=== PATIENT | male | born 1950 | race Hispanic/Latino ===

== ENCOUNTER 2017-02-26 09:53 | Inpatient (IN) | payer OTHER, MEDICARE ==
[~2017-02-26] VITALS: Ht 167.6 cm; Wt 70.8 kg
[2017-02-26] MEDS ORDERED: METRONIDAZOLE500 MG PO (10:19)
[2017-02-26] MEDS ORDERED: CIPRO500 MG PO (10:19)
[2017-02-26] MEDS ORDERED: PANTOPRAZOLE SO40 MG PO (10:19)
[2017-02-26] MEDS ORDERED: PANTOPRAZOLE 40 MG 10ML VIAL IV STA (10:31)
[2017-02-26] MEDS ORDERED: SODIUM CHLORIDE 0.9% 1000ML 1,000 ML IV STA (10:31)
[2017-02-26 11:04] LABS: BASOPHILS % 0.5 % (0.0-1.0); EOSINOPHILS # (AUTO) 0.1 (0.0-0.4); EOSINOPHILS % 1.3 % (0.0-6.0); HEMATOCRIT 26.5 % (38.2-49.6); HEMOGLOBIN 8.9 g/dL (14.0-18.0); LYMPHOCYTES # (AUTO) 0.9 (1.0-3.2); LYMPHOCYTES % 23.9 % (18.0-39.1); MEAN CORPUSCULAR HEMOGLOBIN 31.3 pg (28-32); MEAN CORPUSCULAR HGB CONC 33.6 g/dL (31-35); MEAN CORPUSCULAR VOLUME 93.3 fL (81-99); MONOCYTES # (AUTO) 0.3 (0.2-0.8); NEUTROPHILS # (AUTO) 2.4 (2.1-6.9); NEUTROPHILS % 64.8 % (38.7-80.0); PLATELET COUNT 168 x10e3/uL (140-360); RED BLOOD COUNT 2.84 x10e6/uL (4.3-5.7)
[2017-02-26 11:13] LABS: INR 0.88; PARTIAL THROMBOPLASTIN TIME 27.2 seconds (23.8-35.5); PROTHROMBIN TIME 12.4 seconds (11.9-14.5)
[2017-02-26 11:21] LABS: ALANINE AMINOTRANSFERASE 26 IU/L (0-55); ALBUMIN 3.4 g/dL (3.5-5.0); ALBUMIN/GLOBULIN RATIO 1.1 (0.8-2.0); ALKALINE PHOSPHATASE 36 IU/L (40-150); BLOOD UREA NITROGEN 10 mg/dL (7-26); BUN/CREATININE RATIO 14 (6-25); CALCIUM 8.5 mg/dL (8.4-10.2); CARBON DIOXIDE 28 mmol/L (22-29); CHLORIDE 125 mmol/L (98-107); EST GLOMERULAR FILTRATION RATE > 60 ML/MIN (60-); GLUCOSE 88 mg/dL (74-118); SODIUM 157 mmol/L (136-145)
[2017-02-26] MEDS: PANTOPRAZOLE INJ 40 MG in SODIUM CHLORIDE 0.9% 50ML 50 ML IV SCH ×3 (12:01→22:18)
[2017-02-26] MEDS ORDERED: PANTOPRAZOLE INJ 80 MG in SODIUM CHLORIDE 0.9% 100 ML IV SCH (12:15)
[2017-02-26] MEDS ORDERED: PANTOPRAZOL IV ONE (13:15)
[2017-02-26] MEDS ORDERED: [UNRECOGNIZED DRUG - OTHER] IV ONE (13:15)
[2017-02-26] MEDS ORDERED: IRON DEXTRAN INJ 25 MG in SODIUM CHLORIDE 0.9% 100 ML 100 ML IV ONE (13:45)
[2017-02-26] MEDS: SODIUM CHLORIDE 0.9% 1000ML 1,000 ML IV SCH ×2 (14:33→20:10)
[2017-02-26] MEDS ORDERED: IRON DEXTRAN INJ 500 MG in SODIUM CHLORIDE 0.9% 500ML 500 ML IV ONE (15:30)
[2017-02-26 16:50] VITALS: BP 100/61
[2017-02-26 16:52] VITALS: BP 113/56
[2017-02-26 18:39] LABS: HEMATOCRIT 24.6 % (38.2-49.6); HEMOGLOBIN 8.4 g/dL (14.0-18.0)
[2017-02-26] MEDS ORDERED: MIDAZOLAM HCL 2 MG/2 ML VIAL ONE (19:08)
[2017-02-26] MEDS ORDERED: FENTANYL CITRATE/PF 100MCG/2 ML INJ ONE (19:08)
[2017-02-26 20:00] VITALS: BP 132/66
[2017-02-26] MEDS ORDERED: SODIUM CHLORIDE 0.9% 50ML 100 ML ONE (21:02)
[2017-02-26] MEDS ORDERED: PANTOPRAZOLE 40 MG 10ML VIAL ONE (21:02)
[2017-02-27] VITALS: BP 106/57
[2017-02-27] MEDS: SODIUM CHLORIDE 0.9% 1000ML 1,000 ML IV SCH (00:40)
[2017-02-27] MEDS: PANTOPRAZOLE INJ 40 MG in SODIUM CHLORIDE 0.9% 50ML 50 ML IV SCH ×2 (03:41→08:00)
[2017-02-27 04:00] VITALS: BP 137/72
[2017-02-27 07:27] LABS: HEMATOCRIT 26.2 % (38.2-49.6); HEMOGLOBIN 8.8 g/dL (14.0-18.0)
[2017-02-27 08:21] VITALS: BP 139/75
[2017-02-27] MEDS ORDERED: SODIUM CHLORIDE 0.45% 1,000 ML IV ONE (08:45)
[2017-02-27] MEDS ORDERED: EPINEPHRINE HCL INJ 1 MG/ML AMP ONE (08:46)
[2017-02-27 09:14] LABS: FERRITIN 76.25 ng/mL (21.81-274.66); THYROID STIMULATING HORMONE 0.363 uIU/mL (0.350-4.940)
--- NOTE | 2017-02-27 09:45 | History and Physical ---
PRIMARY CARE PHYSICIAN: Dr. Holman. CHIEF COMPLAINT: Black stool. HISTORY OF PRESENT ILLNESS: This is a 66-year-old man with no medical history, now developing black stool with epigastric pain that prompted visit to the hospital. He is admitted for further evaluation and management. GI has been consulted. His hemoglobin on admission was 8.9. PAST MEDICAL HISTORY: Chronic anemia. PAST SURGICAL HISTORY: None. ALLERGIES: NO KNOWN DRUG ALLERGIES. FAMILY HISTORY/SOCIAL HISTORY: The patient is . Denies any alcohol or illicits. MEDICATIONS: Per electronic medical records. REVIEW OF SYSTEMS: Denies any dizziness or chest pain. PHYSICAL EXAMINATION VITAL SIGNS: Reviewed. GENERAL APPEARANCE: A tired-appearing man resting in the bed. HEENT: Anicteric. CARDIOVASCULAR: Normal S1 and S2. A loud murmur. ABDOMEN: Soft and nontender. Nondistended. EXTREMITIES: There is no edema. SKIN: Dry. PSYCHIATRIC: Flat affect. LABS: Reviewed. MEDICATIONS: Reviewed. ASSESSMENT AND PLAN: A 66-year-old man. 1. Melena/gastrointestinal bleed. GI consulted. The patient on proton pump inhibitor. 2. Normocytic anemia, moderate. Will get an anemia panel. 3. Hypernatremia. Will rehydrate the patient and reassess. 4. Prophylaxis: Will use SCDs and proton pump inhibitor. DISPOSITION: Follow up sodium level. Follow up anemia panel. Job#: [id number]
[2017-02-27] MEDS: SUCRALFATE 1 GM TAB PO SCH ×3 (11:49→21:18)
[2017-02-27 12:23] VITALS: BP 131/62
[2017-02-27] MEDS: SODIUM CHLORIDE 0.45% 1,000 ML IV SCH (14:04)
[2017-02-27] MEDS: PANTOPRAZOL 40MG/SOD CHL 0.9% 50 ML IV SCH ×2 (14:04→19:41)
[2017-02-27 16:27] VITALS: BP 112/68
[2017-02-27 17:26] LABS: HEMATOCRIT 27.4 % (38.2-49.6); HEMOGLOBIN 9.2 g/dL (14.0-18.0)
[2017-02-27] MEDS ORDERED: ATROPINE SULFATE 1 MG/ML VIAL ONE (18:37)
[2017-02-27] MEDS ORDERED: PROPOFOL IV EMULSION 10 MG/ML 20 ML VIAL ONE (18:37)
[2017-02-27 20:00] VITALS: BP 120/67
[2017-02-28] VITALS: BP 126/64
[2017-02-28] MEDS: PANTOPRAZOL 40MG/SOD CHL 0.9% 50 ML IV SCH ×3 (01:12→11:43)
[2017-02-28] MEDS: SODIUM CHLORIDE 0.45% 1,000 ML IV SCH (03:44)
[2017-02-28 04:00] VITALS: BP 121/68
--- NOTE | 2017-02-28 06:24 | Operative Report ---
DATE OF PROCEDURE: February 27, 2017 REFERRING PHYSICIAN: Dr. Andrew Aranda. PROCEDURE PERFORMED: Esophagogastroduodenoscopy with the injection therapy with 1/10,000 epinephrine and fulguration of a visible vessel. INDICATIONS FOR EGD: Anemia, history of melena. MEDICATION: Patient was done under MAC. Please see anesthesiologist's note. PROCEDURE: With the patient in lateral decubitus position, flexible fiberoptic Olympus gastroscope was introduced into the esophagus under direct visualization without any difficulty. There was some patchy erythema noted in distal esophagus. The scope was then advanced with ease into the stomach. Mucosa overlying the antrum and the body revealed some diffuse erythema. The pylorus was of normal contour and shape. It was intubated with ease and the scope was advanced all the way to the 2nd portion of the duodenum. The scope was then withdrawn slowly, and mucosa overlying the proximal 2nd portion appeared to be within normal limits. Two ulcers were encountered in the duodenal bulb, one approximately 4 mm with a clean base, the other ulcer approximately 6 mm in size with a visible vessel that bled transiently after being brushed with the scope. That ulcer was injected with 1/10,000 epinephrine and the visible vessel was fulgurated with size 10 gold probe. Excellent hemostasis was documented. The scope was then withdrawn back into the stomach and retroflexed. Mucosa overlying the fundus and cardia appeared to be within normal limits. The scope was then straightened out. The stomach was decompressed. The scope was subsequently withdrawn. Patient tolerated the procedure well. IMPRESSIONS 1. Mild distal esophagitis. 2. Gastritis. 3. Duodenal bulb ulcers times 2, one with clean base, the 2nd ulcer with visible vessel, injected with 1/10,000 epinephrine and fulgurated with size 10-[place] gold probe with excellent hemostasis. PLAN: Follow H and H. Continue current treatment. Initiate clear liquid diet. Job#: [id number] CF cc:MD JOSELO AMOR MD
[2017-02-28] MEDS: SUCRALFATE 1 GM TAB PO SCH ×4 (07:59→20:55)
[2017-02-28 08:41] VITALS: BP 121/66
[2017-02-28 08:50] LABS: HEMATOCRIT 27.1 % (38.2-49.6); HEMOGLOBIN 9.1 g/dL (14.0-18.0)
[2017-02-28 12:02] VITALS: BP 130/77
[2017-02-28] MEDS ORDERED: PANTOPRAZOL 200MG/SOD CHL 0.9% 250 ML IV SCH ×2 (15:00→17:00)
[2017-02-28] MEDS: FERROUS SULFATE 325 MG TAB PO SCH (16:15)
[2017-02-28] MEDS: ASCORBIC ACID 500 MG TAB PO SCH (16:15)
[2017-02-28 16:20] VITALS: BP 108/80
[2017-02-28 17:17] LABS: HEMATOCRIT 26.9 % (38.2-49.6); HEMOGLOBIN 9.2 g/dL (14.0-18.0)
[2017-02-28 20:00] VITALS: BP 114/67
[2017-03-01] VITALS: BP 97/62
[2017-03-01 04:00] VITALS: BP 107/59
[2017-03-01] MEDS: SUCRALFATE 1 GM TAB PO SCH ×2 (08:30→11:30)
[2017-03-01] MEDS: FERROUS SULFATE 325 MG TAB PO SCH (09:00)
[2017-03-01] MEDS ORDERED: MULTIVITAMINS/MINERALS TAB PO SCH (09:00)
[2017-03-01] MEDS ORDERED: CARAFATE1 GM PO (09:21)
[2017-03-01] MEDS ORDERED: Multivitamins/Minerals PO (09:21)
[2017-03-01] MEDS ORDERED: FEOSOL325 MG PO (09:21)
[2017-03-01] MEDS ORDERED: PANTOPRAZOLE SO40 MG PO (09:21)
[2017-03-01] MEDS ORDERED: ASCORBIC ACID500 MG PO (09:21)
[2017-03-01] MEDS: ASCORBIC ACID 500 MG TAB PO SCH (09:29)
[2017-03-01 09:30] LABS: HEMATOCRIT 27.4 % (38.2-49.6); HEMOGLOBIN 9.3 g/dL (14.0-18.0)
[2017-03-01 09:50] LABS: ANION GAP 9.8 mmol/L (8-16); BLOOD UREA NITROGEN 9 mg/dL (7-26); BUN/CREATININE RATIO 11 (6-25); CALCIUM 8.6 mg/dL (8.4-10.2); CARBON DIOXIDE 24 mmol/L (22-29); CHLORIDE 110 mmol/L (98-107); CREATININE, SERUM 0.81 mg/dL (0.72-1.25); EST GLOMERULAR FILTRATION RATE > 60 ML/MIN (60-); GLUCOSE 131 mg/dL (74-118); POTASSIUM 3.8 mmol/L (3.5-5.1); SODIUM 140 mmol/L (136-145)
--- NOTE | 2017-03-01 16:43 | Discharge Summary ---
ADMISSION DIAGNOSES 1. Upper gastrointestinal bleed. 2. Anemia. DISCHARGE DIAGNOSES 1. Upper gastrointestinal bleed. 2. Anemia. 3. Esophagitis. 4. Gastritis. 5. Duodenal ulcers x2. 6. Hypernatremia. HISTORY: Patient has a history of chronic anemia, no surgical history. HOSPITAL COURSE: A 66-year-old male admitted with black stools and epigastric pain. On admission the hemoglobin was 8.9. GI was consulted and PPI started. Per GI, the patient had an EGD which showed gastritis, esophagitis, duodenal ulcers x2. Sodium was found to be 157 on admission. At time of discharge, sodium was 140. At time of discharge, hemoglobin was 9.2 and stable. Per GI, patient is okay to discharge as he is tolerating his diet and has no signs of bleeding. On discharge, patient was given prescription for iron and vitamin, Carafate and PPI. Patient is to follow up with GI and PCP in 2 weeks. Dictated by: Radha Isaac NP RANI HWANG MD Job#: [id number] EV
== END 2017-03-01 12:40 | disposition home or self-care (01) | DRG 378 ==
LOC: ER 09:53 → ERHOLD 12:25 → MED/SURG 15:45
PROVIDERS: ADMIT Internal Medicine; ATTEND Internal Medicine
PROC: 0W3P8ZZ Control Bleeding in Gastrointestinal Tract, Via Natural or Artificial Opening Endoscopic (ICD-10-PCS; principal; 2017-02-27 07:30)
DX: K26.4 Chronic or unspecified duodenal ulcer with hemorrhage (principal); E87.0 Hyperosmolality and hypernatremia; D62 Acute posthemorrhagic anemia; K29.70 Gastritis, unspecified, without bleeding; K20.9 Esophagitis, unspecified
CPT/HCPCS: 36415; 80048; 80053; 82607; 82728; 83540; 84295; 84443; 84466; 85014; 85018; 85025; 85610; 85730; 86850; 86900; 93005; 96361; 96366; 99284; J0171; J0461; J1750; J2250; J7030; J7040

== ENCOUNTER → 2017-05-01 | Day surgery (SDC) | payer MEDICARE ==
[2017-04-25 14:37] LABS: BASOPHILS % 0.6 % (0.0-1.0); EOSINOPHILS # (AUTO) 0.1 (0.0-0.4); HEMATOCRIT 38.5 % (38.2-49.6); HEMOGLOBIN 13.2 g/dL (14.0-18.0); LYMPHOCYTES # (AUTO) 1.8 (1.0-3.2); LYMPHOCYTES % 33.5 % (18.0-39.1); MEAN CORPUSCULAR HGB CONC 34.3 g/dL (31-35); MEAN CORPUSCULAR VOLUME 90.4 fL (81-99); MONOCYTES # (AUTO) 0.5 (0.2-0.8); MONOCYTES % 9.3 % (4.4-11.3); NEUTROPHILS # (AUTO) 2.9 (2.1-6.9); NEUTROPHILS % 54.2 % (38.7-80.0); PLATELET COUNT 177 x10e3/uL (140-360); RED BLOOD COUNT 4.26 x10e6/uL (4.3-5.7)
[~2017-05-01] MED LIST: ASCORBIC ACID500 MG PO; CARAFATE1 GM PO; CIPRO500 MG PO; FENTANYL CITRATE/PF 100MCG/2 ML INJ ONE; FEOSOL325 MG PO; METRONIDAZOLE500 MG PO; MIDAZOLAM HCL 2 MG/2 ML VIAL ONE; Multivitamins/Minerals PO; PANTOPRAZOLE SO40 MG PO; PROPOFOL IV EMULSION 10 MG/ML 50 ML VIAL ONE
--- NOTE | 2017-05-01 08:56 | Operative Report ---
DATE OF PROCEDURE: May 01, 2017 REFERRING PHYSICIAN: Dr. Domi Miles PROCEDURE PERFORMED: Esophagogastroduodenoscopy with biopsies. INDICATIONS FOR EGD: History of bleeding duodenal ulcer. MEDICATION: Patient was done under MAC. Please see anesthesiologist's note. PROCEDURE: With the patient in the left lateral decubitus position, the flexible fiberoptic Olympus gastroscope was introduced into the esophagus under direct visualization without any difficulty. There was some patchy erythema noted in the distal esophagus. The scope was then advanced with ease into the stomach, and mucosa overlying the antrum and the body revealed some diffuse erythema and moderate edema, and biopsies were obtained and sent to stain for H. pylori. The pylorus was of normal contour and shape. It was intubated with ease. The scope was advanced all the way to the 2nd portion of the duodenum. The scope was then withdrawn slowly, and mucosa overlying the proximal 2nd portion appeared to be within normal limits. The previously described duodenal ulcers, including the one with visible vessel appeared to have been well-healed. The scope was then withdrawn back into the stomach and retroflexed. The mucosa overlying the fundus and the cardia appeared to be within normal limits. The scope was then straightened out. The stomach was decompressed. The scope was subsequently withdrawn. Patient tolerated the procedure well. IMPRESSION 1. Mild distal esophagitis. 2. Gastritis, biopsied. Biopsies sent to stain for Helicobacter pylori. 3. Previously described duodenal ulcer with a visible vessel, as well as the other described duodenal ulcer appeared to have well-healed. PLAN: Follow up histology. Continue Protonix 40 mg 1 p.o. q.a.m. a.c. Job#: [id number] RI cc:DOMI MILES MD
== END | disposition home or self-care (01) ==
LOC: OR 07:40
PROVIDERS: ATTEND Internal Medicine Gastroenterology
DX: K26.9 Duodenal ulcer, unspecified as acute or chronic, without hemorrhage or perforation (principal); K29.50 Unspecified chronic gastritis without bleeding; K20.9 Esophagitis, unspecified; K27.9 Peptic ulcer, site unspecified, unspecified as acute or chronic, without hemorrhage or perforation; A04.8 Other specified bacterial intestinal infections; R00.1 Bradycardia, unspecified; Z01.810 Encounter for preprocedural cardiovascular examination; Z01.812 Encounter for preprocedural laboratory examination
CPT/HCPCS: 36415; 43239; 85025; 88305; 88312; 93005; J2250

== ENCOUNTER 2018-02-13 08:47 | Emergency (ER) | payer MEDICARE ==
[~2018-02-13] VITALS: Ht 167.6 cm; Wt 70.8 kg
[~2018-02-13 08:47] MED LIST changes: -FENTANYL CITRATE/PF 100MCG/2 ML INJ ONE; -MIDAZOLAM HCL 2 MG/2 ML VIAL ONE; -PROPOFOL IV EMULSION 10 MG/ML 50 ML VIAL ONE
[2018-02-13 10:29] LABS: ALANINE AMINOTRANSFERASE 22 IU/L (0-55); ALBUMIN/GLOBULIN RATIO 1.1 (0.8-2.0); ALKALINE PHOSPHATASE 56 IU/L (40-150); ANION GAP 12.5 mmol/L (8-16); BLOOD UREA NITROGEN 16 mg/dL (7-26); BUN/CREATININE RATIO 19 (6-25); CALCIUM 9.3 mg/dL (8.4-10.2); CARBON DIOXIDE 23 mmol/L (22-29); CHLORIDE 108 mmol/L (98-107); CHOLESTEROL 203 MD/DL (0-199); CREATININE, SERUM 0.83 mg/dL (0.72-1.25); EST GLOMERULAR FILTRATION RATE > 60 ML/MIN (60-); GLUCOSE 94 mg/dL (74-118); HDL CHOLESTEROL 41 MG/DL (40-60); LDL CHOLESTEROL 126 MG/DL (60-130); POTASSIUM 3.5 mmol/L (3.5-5.1); SODIUM 140 mmol/L (136-145); TRIGLYCERIDES 180 MG/DL (0-149)
--- NOTE | 2018-02-13 10:51 | Diagnostic Imaging Report ---
PROCEDURE: Frontal and lateral views of the chest. COMPARISON: None. INDICATIONS: CHEST PAIN, LEFT SIDED CHEST PAIN FINDINGS: Lines/tubes: None. Lungs: The lungs are well inflated. Minimal atelectatic changes in the left lower lung. No consolidation or pulmonary edema. Pleura: There is no pleural effusion or pneumothorax. Heart and mediastinum: The heart and the mediastinum are normal. Bones: No acute bony abnormality. IMPRESSION: 1. No acute cardiopulmonary abnormalities. Minimal atelectatic changes in the left lower lung. Raman Levin M.D. Dictated by: Raman Levin M.D. on 02/13/2018 at 11:01 Electronically approved by: Raman Levin M.D. on 02/13/2018 at 11:01
[2018-02-13 11:04] LABS: BASOPHILS % 0.6 % (0.0-1.0); EOSINOPHILS # (AUTO) 0.1 (0.0-0.4); EOSINOPHILS % 2.1 % (0.0-6.0); HEMATOCRIT 42.9 % (38.2-49.6); HEMOGLOBIN 15.2 g/dL (14.0-18.0); LYMPHOCYTES # (AUTO) 1.4 (1.0-3.2); LYMPHOCYTES % 26.9 % (18.0-39.1); MEAN CORPUSCULAR HEMOGLOBIN 31.9 pg (28-32); MEAN CORPUSCULAR HGB CONC 35.4 g/dL (31-35); MEAN CORPUSCULAR VOLUME 90.1 fL (81-99); MONOCYTES # (AUTO) 0.5 (0.2-0.8); MONOCYTES % 9.8 % (4.4-11.3); NEUTROPHILS # (AUTO) 3.1 (2.1-6.9); PLATELET COUNT 193 x10e3/uL (140-360); RED BLOOD COUNT 4.76 x10e6/uL (4.3-5.7); RED CELL DISTRIBUTION WIDTH 11.9 % (11.7-14.4)
--- NOTE | 2018-02-13 14:04 | Diagnostic Imaging Report ---
EXAMINATION: CT angiography scan of the chest with contrast. TECHNIQUE: Spiral CT images of the chest were performed from the lung apices to the level of the adrenal glands after the intravenous administration of 100 cc of Isovue-370. Precontrast images were also obtained per aortic dissection protocol. Coronal and sagittal reformatted images were obtained. COMPARISON: None. CLINICAL HISTORY:Tearing chest pain, concern for aortic dissection DISCUSSION: Vasculature: No ectasia or aneurysmal dilatation of the ascending thoracic aorta. The thoracic aorta is normal in course, caliber, and contour with minimal calcified and noncalcified atherosclerotic plaque along its course. No intimal flap, mediastinal hematoma, or pseudoaneurysm. Great vessel origins are notable for a common origin of the innominate and left common carotid artery from the aortic arch. Great vessel origins are of normal caliber. Mild coronary artery calcifications. This study was not optimized for detection of pulmonary emboli; however, the main pulmonary artery, right and left pulmonary arteries, and lobar branches are patent, without filling defect. LUNGS AND AIRWAYS: Scattered foci of bandlike atelectasis in the lingula, right middle lobe, and bilateral lower lobes. Trachea, mainstem bronchi, and central lobar and segmental bronchi are patent. PLEURA: No pneumothorax or pleural effusions. HEART AND MEDIASTINUM: Visualized portions of the thyroid gland are normal. No axillary, hilar, or mediastinal lymphadenopathy. Calcified left hilar lymph nodes. No pericardial effusion. LYMPH NODES: As above. ABDOMEN: Innumerable low-attenuation lesions scattered throughout the liver . the lesions greater than a centimeter in size all have average internal attenuation less than 20 Hounsfield units compatible with simple cysts. Heterogeneity of splenic attenuation reflects arterial phase of scan. Visualized portions of the pancreas, adrenals, and kidneys are unremarkable. BONES AND SOFT TISSUES: No focal soft tissue abnormalities. No osseous destructive lesions. Multilevel degenerative disc changes of the thoracic spine. IMPRESSION: No acute thoracic CT abnormalities. No aortic dissection. Atherosclerotic vascular disease. Scattered foci of bandlike atelectasis in the lower lungs. Evidence of prior granulomatous disease. Signed by: Dr. Ismael Velazquez M.D. on 02/13/2018 2:00 PM
[2018-02-13] MEDS ORDERED: IOPAMIDOL 370 MG/ML 200 ML INFUS..BTL INJ ONE (14:40)
[2018-02-13] MEDS ORDERED: SODIUM CHLORIDE 0.9% 100 ML 100 ML ONE (14:40)
== END 2018-02-13 15:05 | disposition home or self-care (01) ==
LOC: ER 08:47
DX: R07.89 Other chest pain (principal); E78.5 Hyperlipidemia, unspecified
CPT/HCPCS: 36415; 71046; 71275; 80053; 80061; 84484; 85025; 85379; 93005; 99284; Q9967